=== PATIENT | female | born 1940 ===

== ENCOUNTER 2017-10-20 12:35 | Emergency (ER) | payer OTHER ==
--- NOTE | 2017-10-20 14:17 | RAD ---
PROCEDURE: Radiographs of the chest and abdomen (obstructive series) HISTORY: abd pain COMPARISON: Comparison is made with 07/22/2016 TECHNIQUE: AP radiograph of the chest, with upright and supine radiographs of the abdomen. FINDINGS: CHEST: Lungs: No evidence of focal infiltrate or consolidation in the lungs. Chronic lung changes at the lower lobes are again noted Cardiovascular: Normal size heart. No pulmonary vascular congestion. Pleura: No pleural fluid. No pneumothorax. Other findings: None. ABDOMEN AND PELVIS: Bowel: Unremarkable bowel gas pattern. No evidence of mechanical obstruction. Free air: None. Bones: Unremarkable. Other findings: Round foci of calcification are again noted at the right lower abdomen/pelvis IMPRESSION: No evidence of bowel obstruction. Mild diffuse lucency in the abdomen of uncertain etiology. If clinically warranted further assessment by CT may be obtained.
[2017-10-20 14:29] LABS: BASO # 0.1 K/uL (0.0-0.2); BASO % 0.9 % (0.0-2.0); EOS # 0.3 K/uL (0.0-0.7); EOS % 3.4 % (0.0-4.0); HEMOGLOBIN 14.4 g/dL (11.0-16.0); LYMPH # 2.6 K/uL (1.0-4.3); LYMPH % 35.8 % (20.0-40.0); MEAN CELL VOLUME 86.7 fL (81.0-99.0); MEAN CORPUSCULAR HEMOGLOBIN 29.2 pg (27.0-31.0); MEAN CORPUSCULAR HGB CONC 33.7 g/dL (33.0-37.0); MEAN PLATELET VOLUME 7.7 fL (7.2-11.7); MONO # 0.6 K/uL (0.0-0.8); MONO % 8.2 % (0.0-10.0); NEUT # 3.8 K/uL (1.8-7.0); NEUT % 51.7 % (50.0-75.0); NRBC % 0.3 % (0.0-2.0); RBC 4.93 Mil/uL (3.80-5.20); RED CELL DISTRIBUTION WIDTH 14.1 % (11.5-14.5); WHITE BLOOD COUNT 7.4 K/uL (4.8-10.8)
--- NOTE | 2017-10-20 14:39 | C.PDOC ---
History Of Present Illness 77 y/o female presents to ED with complaints of cramping abdominal pain and discomfort associated with constipation with no bowel movement for the past week. Patient has not taken any laxatives. Reports she lives alone with visiting home health attendant. Patient was seen 2017 for mental status work up ; MRI, CT scans and other labs were all negative. Time Seen by Provider: 10/20/17 13:41 Chief Complaint (Nursing): Abdominal Pain History Per: Patient History/Exam Limitations: no limitations Onset/Duration Of Symptoms: Days (7) Current Symptoms Are (Timing): Still Present Location Of Pain/Discomfort: Diffuse Quality Of Discomfort: Cramping Associated Symptoms: Constipation. denies: Fever, Chills, Nausea, Vomiting, Diarrhea Exacerbating Factors: None Alleviating Factors: None Last Bowel Movement: Days Ago (7) Recent travel outside of the [place]: No Abnormal Vaginal Bleeding: No Past Medical History Reviewed: Historical Data, Nursing Documentation, Vital Signs Vital Signs: Last Vital Signs Temp 97.3 F L 10/20/17 15:45 Pulse 60 10/20/17 15:45 Resp 20 10/20/17 15:45 BP 151/74 H 10/20/17 15:45 Pulse Ox 97 10/20/17 15:45 - Medical History PMH: Gastritis, Gastrointestinal Ulcer, HTN, Rheumatoid Arthritis, TIA - [facility] Procedures CLOSED ENDOSCOPIC BIOPSY OF LARGE INTESTINE (04/15/13) ESOPHAGOGASTRODUODENOSCOPY [EGD] W/CLOSED BIOPSY (04/08/13) Family History: States: Unknown Family Hx - Social History Hx Tobacco Use: No Hx Alcohol Use: Yes Hx Substance Use: No - Immunization History Hx Tetanus Toxoid Vaccination: No Hx Influenza Vaccination: No Hx Pneumococcal Vaccination: No Review Of Systems Constitutional: Negative for: Fever, Chills Cardiovascular: Negative for: Chest Pain Respiratory: Negative for: Cough, Shortness of Breath Gastrointestinal: Positive for: Abdominal Pain, Constipation. Negative for: Nausea, Vomiting, Diarrhea Neurological: Negative for: Weakness, Numbness Physical Exam - Physical Exam Appears: Well, Non-toxic, No Acute Distress, Other (Obese) Skin: Normal Color, Warm, Dry Head: Atraumatic, Normacephalic Eye(s): bilateral: Normal Inspection, PERRL Oral Mucosa: Moist Neck: Supple Chest: Symmetrical, No Tenderness Cardiovascular: Rhythm Regular Respiratory: Normal Breath Sounds, No Decreased Breath Sounds, No Rales, No Rhonchi, No Wheezing Gastrointestinal/Abdominal: Soft, No Tenderness, No Distention, No Guarding, No Rebound Extremity: Normal ROM, No Tenderness, No Pedal Edema Neurological/Psych: Oriented x3, Normal Speech, Normal Cognition ED Course And Treatment - Laboratory Results Result Diagrams: 10/20/17 14:19 10/20/17 14:19 Lab Interpretation: Normal (ua neg.) ECG: Interpreted By Me ECG Rhythm: Sinus Rhythm ECG Interpretation: Normal Rate From EC O2 Sat by Pulse Oximetry: 95 (RA) Pulse Ox Interpretation: Normal - Radiology CXR: Interpreted by Me CXR Interpretation: Yes: No Acute Disease - Other Rad Abdomen X-Ray X-Ray: Viewed By Me, Read By Radiologist Interpretation: IMPRESSION: normal stool/gas Reevaluation Time: 16:19 Reassessment Condition: Improved Medical Decision Making Medical Decision Making: Ordered EKG, blood work, X-ray, and urinalysis. vague symptoms, no physical nor lab findings. LOW susp of atypical ACS with normal EKG and trop neg. ok to d/c home. Safe with [employer] visiting regularly. Disposition Doctor Will See Patient In The: Office Counseled Patient/Family Regarding: Studies Performed, Diagnosis - Disposition Disposition: HOME/ ROUTINE Disposition Time: 16:19 Condition: GOOD Forms: [facility] (Wolof) - Clinical Impression Clinical Impression: Colicky periumbilical abdominal pain - Scribe Statement The provider has reviewed the documentation as recorded by the Scribrama Bah All medical record entries made by the Scribe were at my direction and personally dictated by me. I have reviewed the chart and agree that the record accurately reflects my personal performance of the history, physical exam, medical decision making, and the department course for this patient. I have also personally directed, reviewed, and agree with the discharge instructions and disposition.
[2017-10-20 14:57] LABS: ALB/GLOB RATIO 1.1 (1.0-2.1); ALBUMIN 3.7 g/dL (3.5-5.0); ALT/SGPT 27 U/L (9-52); AST/SGOT 27 U/L (14-36); BLOOD UREA NITROGEN 15 mg/dL (7-17); GFR AFRICAN-AMERICAN > 60; GFR NON-AFRICAN AMERICAN > 60; LIPASE 116 U/L (23-300)
[2017-10-20 15:24] LABS: SQUAMOUS EPITHIAL 1 /hpf (0-5); URINE BILIRUBIN NEGATIVE (NEGATIVE); URINE BLOOD NEGATIVE (NEGATIVE); URINE CLARITY Clear (Clear); URINE COLOR Red (YELLOW); URINE GLUCOSE (UA) NORMAL (Normal); URINE LEUKOCYTE ESTERASE TRACE Leu/uL (Negative); URINE NITRATE NEGATIVE (NEGATIVE); URINE PROTEIN NEGATIVE (NEGATIVE); URINE UROBILINOGEN NORMAL mg/dL (0.2-1.0)
[2017-10-20 15:45] VITALS: BP 151/74; PULSE 60; RESP 20; TEMP 97.3
[2017-10-20 16:20] VITALS: O2SAT 95
--- NOTE | 2017-10-22 22:41 | CARD ---
APPROVED REPORT EKG Measurement Heart [id number] MA [id number] [id number] <Conclusion> Sinus bradycardia Otherwise normal ECG
== END 2017-10-20 16:47 | disposition home or self-care (01) ==
LOC: C.ER 12:35
DX: R10.84 Generalized abdominal pain (principal); I10 Essential (primary) hypertension

== ENCOUNTER 2017-12-04 18:35 | Emergency (ER) | payer OTHER ==
[2017-12-04 19:05] VITALS: TEMP 97.8
[2017-12-04 20:35] LABS: BASO # 0.1 K/uL (0.0-0.2); BASO % 0.7 % (0.0-2.0); EOS # 0.2 K/uL (0.0-0.7); EOS % 2.4 % (0.0-4.0); HEMOGLOBIN 16.1 g/dL (11.0-16.0); LYMPH # 2.6 K/uL (1.0-4.3); LYMPH % 26.3 % (20.0-40.0); MEAN CELL VOLUME 87.3 fL (81.0-99.0); MEAN CORPUSCULAR HEMOGLOBIN 29.4 pg (27.0-31.0); MEAN CORPUSCULAR HGB CONC 33.7 g/dL (33.0-37.0); MEAN PLATELET VOLUME 7.8 fL (7.2-11.7); MONO # 0.6 K/uL (0.0-0.8); MONO % 5.9 % (0.0-10.0); NEUT # 6.4 K/uL (1.8-7.0); NEUT % 64.7 % (50.0-75.0); RBC 5.46 Mil/uL (3.80-5.20); RED CELL DISTRIBUTION WIDTH 14.2 % (11.5-14.5)
[2017-12-04 20:41] LABS: ALB/GLOB RATIO 0.9 (1.0-2.1); ALBUMIN 4.2 g/dL (3.5-5.0); ALT/SGPT 19 U/L (9-52); AST/SGOT 30 U/L (14-36); BLOOD UREA NITROGEN 12 mg/dL (7-17); CALCIUM 9.5 mg/dl (8.6-10.4); GFR AFRICAN-AMERICAN > 60; GFR NON-AFRICAN AMERICAN > 60; LIPASE 120 U/L (23-300)
[2017-12-04 21:12] LABS: SQUAMOUS EPITHIAL 3 /hpf (0-5); URINE BACTERIA OCC (<OCC); URINE BILIRUBIN NEGATIVE (NEGATIVE); URINE BLOOD 1+ (NEGATIVE); URINE CLARITY Hazy (Clear); URINE COLOR Yellow (YELLOW); URINE GLUCOSE (UA) NORMAL (Normal); URINE LEUKOCYTE ESTERASE TRACE Leu/uL (Negative); URINE PROTEIN NEGATIVE (NEGATIVE); URINE UROBILINOGEN NORMAL mg/dL (0.2-1.0)
--- NOTE | 2017-12-04 21:49 | C.PDOC ---
History Of Present Illness 77 y/o female with psychiatric history, who presents to the ED complaining of crampy abdominal pain for 3 days. Patient also states her last bowel movement was 3 days ago. No nausea, vomiting, or diarrhea. Patient is afebrile upon arrival. Time Seen by Provider: 12/04/17 20:10 Chief Complaint (Nursing): Abdominal Pain History Per: Patient History/Exam Limitations: no limitations Onset/Duration Of Symptoms: Days (x3) Current Symptoms Are (Timing): Still Present Radiation Of Pain To:: None Quality Of Discomfort: Cramping Associated Symptoms: Constipation Past Medical History Reviewed: Historical Data, Nursing Documentation, Vital Signs Vital Signs: Last Vital Signs Temp 97.8 F 12/04/17 19:01 Pulse 68 12/04/17 19:01 Resp 18 12/04/17 19:01 BP 144/79 12/04/17 19:01 Pulse Ox 95 12/04/17 21:49 - Medical History PMH: Arthritis, Gastritis, Gastrointestinal Ulcer, HTN, Rheumatoid Arthritis, TIA Denies: HIV, Chronic Kidney Disease Surgical History: No Surg Hx - [facility] Procedures CLOSED ENDOSCOPIC BIOPSY OF LARGE INTESTINE (04/15/13) ESOPHAGOGASTRODUODENOSCOPY [EGD] W/CLOSED BIOPSY (04/08/13) Family History: States: Unknown Family Hx - Social History Hx Tobacco Use: No Hx Alcohol Use: No Hx Substance Use: No - Immunization History Hx Tetanus Toxoid Vaccination: No Hx Influenza Vaccination: No Hx Pneumococcal Vaccination: No Review Of Systems Except As Marked, All Systems Reviewed And Found Negative. Constitutional: Negative for: Fever Gastrointestinal: Positive for: Abdominal Pain, Constipation. Negative for: Nausea, Vomiting, Diarrhea Physical Exam - Physical Exam Appears: Non-toxic, No Acute Distress Skin: Normal Color, Warm, Dry Head: Atraumatic, Normacephalic Eye(s): bilateral: Normal Inspection, PERRL, EOMI Oral Mucosa: Moist Neck: Normal ROM, Supple Chest: Symmetrical Cardiovascular: Rhythm Regular Respiratory: Normal Breath Sounds, No Accessory Muscle Use, No Wheezing Gastrointestinal/Abdominal: Bowel Sounds (normal), Soft, No Tenderness, Other ( obese abdomen) Back: Normal Inspection, No CVA Tenderness Extremity: Bilateral: Atraumatic, Normal Color And Temperature Neurological/Psych: Oriented x3, Normal Speech ED Course And Treatment - Laboratory Results Result Diagrams: 12/04/17 20:25 04/03/18 20:25 Lab Interpretation: Normal (UA neg.) ECG: Interpreted By Me ECG Rhythm: Sinus Rhythm ECG Interpretation: Normal Rate From EC O2 Sat by Pulse Oximetry: 95 Pulse Ox Interpretation: Normal - Radiology CXR: Interpreted by Me CXR Interpretation: Yes: No Acute Disease - Other Rad abd x 2 X-Ray: Interpreted by Me (normal stool/gas pattern, no FA, no obst) Reevaluation Time: 21:48 Reassessment Condition: Improved Medical Decision Making Medical Decision Making: Initial Plan: EKG and labs ordered and reviewed. X-ray obstructive series pending. Impression: normal labs and scant stool in colon. ? underlying psych as pt unaware of BM's in past 3 days. pinpoint pupils from Tramadol pt takes for unknown reason may cause constipation. educated with poor insight. Disposition Doctor Will See Patient In The: Office Counseled Patient/Family Regarding: Studies Performed, Diagnosis - Disposition Referrals: Portillo Wright MD [Staff Provider] - Disposition: HOME/ ROUTINE Disposition Time: 21:49 Condition: GOOD Additional Instructions: avoid taking Tramadol- a narcotic pain reliever- as it causes constipation as a side-effect diet with 7 fresh fruits and vegetables daily. Follow-up w Dr. Wright- call to make an appointment. Instructions: Constipation in Adults Forms: [facility] (Icelandic) - POA Present On Arrival: None - Clinical Impression Clinical Impression: Abdominal pain - Scribe Statement The provider has reviewed the documentation as recorded by the Subhashibrama Johnson Provider Attestation: All medical record entries made by the Subhashibarma were at my direction and personally dictated by me. I have reviewed the chart and agree that the record accurately reflects my personal performance of the history, physical exam, medical decision making, and the department course for this patient. I have also personally directed, reviewed, and agree with the discharge instructions and disposition.
[2017-12-04 23:00] VITALS: BP 140/80; PULSE 80; RESP 20; O2SAT 96
--- NOTE | 2017-12-05 08:34 | RAD ---
PROCEDURE: Radiographs of the chest and abdomen (obstructive series) HISTORY: abd pain COMPARISON: Obstructive series dated 10/20/2017. TECHNIQUE: AP radiograph of the chest, with upright and supine radiographs of the abdomen. FINDINGS: CHEST: Lungs: Clear. Cardiovascular: Atherosclerotic aortic calcifications. Normal size heart. No pulmonary vascular congestion. Pleura: No pleural fluid. No pneumothorax. Other findings: Osseous degenerative changes. ABDOMEN AND PELVIS: Bowel: Unremarkable bowel gas pattern. No evidence of mechanical obstruction. Free air: None. Bones: Degenerative changes. Other findings: None. IMPRESSION: Unremarkable radiographs of chest and abdomen. No evidence of mechanical bowel obstruction.
--- NOTE | 2017-12-07 10:36 | CARD ---
APPROVED REPORT EKG Measurement Heart [id number] IN [id number] <Conclusion> Normal sinus rhythm Possible Left atrial enlargement Borderline ECG
== END 2017-12-04 22:12 | disposition home or self-care (01) ==
LOC: C.ER 18:35
DX: R10.9 Unspecified abdominal pain (principal)

== ENCOUNTER 2018-04-26 12:32 | Emergency (ER) | payer MEDICARE, MEDICAID ==
[2018-04-26 12:38] VITALS: BMI 29.2
[2018-04-26 12:50] VITALS: BP 109/72; PULSE 88; RESP 16; TEMP 97.4; O2SAT 95
--- NOTE | 2018-04-26 13:13 | C.PDOC ---
History Of Present Illness 77 y/o female HTN, CVA presents to ED with c/o pain to bunion on right foot. Patient states she had surgery for bunion on left foot, and now would like it on her right foot. Notes it causes her pain when her shoes rub on the area. Denies fever, change in sensation, weakness, right foot injury or any other complaints at this time. Time Seen by Provider: 04/26/18 12:41 Chief Complaint (Nursing): Lower Extremity Problem/Injury History Per: Patient, Assistant Infant Teacher (CRYSTAL Olson) History/Exam Limitations: no limitations Onset/Duration Of Symptoms: Days Current Symptoms Are (Timing): Still Present Past Medical History Reviewed: Historical Data, Nursing Documentation, Vital Signs Vital Signs: Last Vital Signs Temp 97.4 F L 04/26/18 12:38 Pulse 88 04/26/18 12:38 Resp 16 04/26/18 12:38 BP 109/72 04/26/18 12:38 Pulse Ox 95 04/26/18 13:35 - Medical History PMH: Arthritis, Gastritis, Gastrointestinal Ulcer, HTN, Rheumatoid Arthritis, TIA Surgical History: No Surg Hx - [facility] Procedures CLOSED ENDOSCOPIC BIOPSY OF LARGE INTESTINE (04/15/13) ESOPHAGOGASTRODUODENOSCOPY [EGD] W/CLOSED BIOPSY (04/08/13) Family History: States: No Known Family Hx - Social History Hx Tobacco Use: No Hx Alcohol Use: No Hx Substance Use: No - Immunization History Hx Tetanus Toxoid Vaccination: No Hx Influenza Vaccination: No Hx Pneumococcal Vaccination: No Review Of Systems Constitutional: Negative for: Fever, Chills Musculoskeletal: Positive for: Foot Pain Skin: Negative for: Rash Neurological: Negative for: Weakness, Numbness Physical Exam - Physical Exam Appears: Non-toxic, No Acute Distress Skin: Warm, Dry, No Rash Head: Atraumatic, Normacephalic Eye(s): bilateral: Normal Inspection, EOMI Nose: Normal Oral Mucosa: Moist Neck: Normal ROM, Supple Chest: Symmetrical Respiratory: No Accessory Muscle Use Extremity: Normal ROM, No Calf Tenderness, Capillary Refill (<2 seconds), No Deformity, No Swelling, Other ((+) hallux valgus on right foot, mild tenderness , no erythema, no swelling, healed incision to left foot.) Extremity: Bilateral: Normal Color And Temperature, Normal ROM Pulses: Left Dorsalis Pedis: Normal, Right Dorsalis Pedis: Normal Neurological/Psych: Oriented x3, Normal Speech (mildly slurring noted, pt notes no change in her speech since CVA), Normal Motor, Normal Sensation ED Course And Treatment O2 Sat by Pulse Oximetry: 95 (RA) Pulse Ox Interpretation: Normal Progress Note: Pt states she wants bunion surgery and does not want to be evaluated for anything additional. Explained to pt need for outpt follow up with rebar bender. No signs of infection. No trauma. Pt verbalized understanding. Engine Installer used to ensure understanding. Case discussed with Dr Del Real, agreed upon plan and discharge. Disposition - Disposition Referrals: Coy Bueno DPM [Doctor Podiatric Medicine] - Disposition: HOME/ ROUTINE Disposition Time: 13:11 Condition: STABLE Additional Instructions: Follow up with the rebar bender in 1-2 days. Return to ER if symptoms persist or worsen. Oli un seguimiento con el podiatra en 1-2 garrison. Regrese a la daya de emergencias si los sntomas persisten o empeoran. Instructions: Bunion (DC) Forms: [employer] (Jamaican) Print Language: ARMENIAN - Clinical Impression Clinical Impression: Hallux valgus - PA / FINANCIAL INSTITUTION TREASURER / Resident Statement MD/DO has reviewed & agrees with the documentation as recorded. - Scribe Statement The provider has reviewed the documentation as recorded by the Subhashibrama Alvarez All medical record entries made by the Scribe were at my direction and personally dictated by me. I have reviewed the chart and agree that the record accurately reflects my personal performance of the history, physical exam, medical decision making, and the department course for this patient. I have also personally directed, reviewed, and agree with the discharge instructions and disposition.
== END 2018-04-26 13:51 | disposition home or self-care (01) ==
LOC: C.ER 12:32
DX: M20.11 Hallux valgus (acquired), right foot (principal); I10 Essential (primary) hypertension; M06.9 Rheumatoid arthritis, unspecified; Z86.73 Personal history of transient ischemic attack (TIA), and cerebral infarction without residual deficits

== ENCOUNTER 2018-04-29 10:22 | Emergency (ER) | payer MEDICARE, MEDICAID ==
[2018-04-29 10:22] VITALS: BMI 29.2
[2018-04-29 10:34] VITALS: BP 125/69; PULSE 75; RESP 18; TEMP 97.4; O2SAT 96
--- NOTE | 2018-04-29 11:25 | C.PDOC ---
History Of Present Illness 77 y/o female presents to ED with c/o right bunion pain for "awhile". Patient reports she had left bunion removal surgery and now has bunion on right foot, not been able to schedule surgery.Patient was seen at ED 3 days ago and instructed to follow up with autocad draftsman for surgery, states she thought autocad draftsman was in ED prompting visit today. Patient denies injury, numbness to leg, weakness to leg or any other complaints at this time Time Seen by Provider: 04/29/18 10:38 Chief Complaint (Nursing): Lower Extremity Problem/Injury History Per: Patient History/Exam Limitations: no limitations Onset/Duration Of Symptoms: Days Current Symptoms Are (Timing): Still Present Past Medical History Reviewed: Historical Data, Nursing Documentation, Vital Signs Vital Signs: Last Vital Signs Temp 97.4 F L 04/29/18 10:32 Pulse 75 04/29/18 10:32 Resp 18 04/29/18 10:32 BP 125/69 04/29/18 10:32 Pulse Ox 96 04/29/18 11:30 - Medical History PMH: Arthritis, Gastritis, Gastrointestinal Ulcer, HTN, Rheumatoid Arthritis, TIA Surgical History: No Surg Hx - [facility] Procedures CLOSED ENDOSCOPIC BIOPSY OF LARGE INTESTINE (04/15/13) ESOPHAGOGASTRODUODENOSCOPY [EGD] W/CLOSED BIOPSY (04/08/13) Family History: States: No Known Family Hx - Social History Hx Tobacco Use: No Hx Alcohol Use: No Hx Substance Use: No - Immunization History Hx Tetanus Toxoid Vaccination: No Hx Influenza Vaccination: No Hx Pneumococcal Vaccination: No Review Of Systems Cardiovascular: Negative for: Chest Pain Respiratory: Negative for: Shortness of Breath Musculoskeletal: Positive for: Foot Pain Skin: Negative for: Rash Neurological: Negative for: Weakness, Numbness Physical Exam - Physical Exam Appears: Non-toxic, No Acute Distress Skin: Warm, Dry, No Rash Head: Atraumatic, Normacephalic Eye(s): bilateral: Normal Inspection Oral Mucosa: Moist Extremity: Normal ROM, Capillary Refill (<2 seconds), Other (bunion noted to right foot ) Pulses: Right Dorsalis Pedis: Normal Neurological/Psych: Oriented x3, Normal Motor, Normal Sensation ED Course And Treatment O2 Sat by Pulse Oximetry: 96 (RA) Pulse Ox Interpretation: Normal Disposition - Disposition Referrals: Coy Bueno DPM [Doctor Podiatric Medicine] - Disposition: HOME/ ROUTINE Disposition Time: 10:40 Condition: GOOD Additional Instructions: KAVEH DAWSON, thank you for letting us take care of you today. The emergency medical care you received today was directed at your acute symptoms. If you were prescribed any medication, please fill it and take as directed. It may take several days for your symptoms to resolve. Return to the Emergency Department if your symptoms worsen, do not improve, or if you have any other problems. Please contact your doctor or call one of the physicians/clinics you have been referred to that are listed on the Patient Visit Information form that is included in your discharge packet. Bring any paperwork you were given at discharge with you along with any medications you are taking to your follow up visit. Our treatment cannot replace ongoing medical care by a primary care provider outside of the emergency department. Thank you for allowing the [facility] team to be part of your care today. Follow up with your autocad draftsman (foot doctor) this week to have your right foot evaluated. KAVEH DAWSON, breanne por dejarnos atenderlo fantasma. La atencin mdica de emergencia que recibi hoy estaba dirigida a francisca sntomas agudos. Si le prescribieron algn medicamento, llnelo y tome segn las indicaciones. Francisca s ntomas pueden tardar varios garrison en resolverse. Regrese al Departamento de Emergencia si francisca sntomas empeoran, no mejoran o si tiene algn otro problema. Comunquese con tadeo mdico o llame a milo de los mdicos / clnicas a los que delaney sido referido que figura en el formulario de Informacin de visita del paciente que se incluye en tadeo paquete de santa. Traiga todos los documentos que recibi al momento del santa junto con los medicamentos que est tomando en tadeo visita de seguimiento. Nuestro tratamiento no puede reemplazar la atencin mdica en curso por un proveedor de atencin primaria fuera del departamento de emergencia. Breanne por permitir que el equipo de [facility] sea parte de tadeo cuidado hoy. Oli un seguimiento con tadeo podiatra (mdico de pies) esta semana para evaluar tadeo pie derecho. Instructions: Nick (DC) Forms: Gen Discharge Inst Ukrainian Print Language: LITHUANIAN - Clinical Impression Clinical Impression: Bunion - Scribe Statement The provider has reviewed the documentation as recorded by the Scribe Faibo Alvarez All medical record entries made by the Scribe were at my direction and personally dictated by me. I have reviewed the chart and agree that the record accurately reflects my personal performance of the history, physical exam, medical decision making, and the department course for this patient. I have also personally directed, reviewed, and agree with the discharge instructions and disposition.
== END 2018-04-29 10:50 | disposition home or self-care (01) ==
LOC: C.ER 10:22
DX: M21.611 Bunion of right foot (principal)

== ENCOUNTER 2018-07-25 14:43 | Emergency (ER) | payer MEDICARE, MEDICAID ==
[2018-07-25 14:43] VITALS: BMI 29.2
[2018-07-25 15:00] VITALS: TEMP 97.6
[2018-07-25] MEDS ORDERED: Lidocaine 5% Patch TD STA (15:59)
--- NOTE | 2018-07-25 15:59 | C.PDOC ---
History Of Present Illness 77 Y/O FEMALE PRESENTS TO ED WITH C/O LOCALIZED RIGHT LOWER BACK PAIN FOR 2 WEEKS. PATIENT STATES PAIN IS WORSE WITH MOVEMENT, CURRENTLY ON TRAMADOL AND XANAX. PATIENT DENIES DYSURIA, HEMATURIA, FEVER, CHILLS, NAUSEA, VOMITING, ABDOMINAL PAIN, VAGINAL DISCHARGE, TRAUMA OR ANY OTHER COMPLAINTS AT THIS TIME. CO R LBP X 2 WEEKS. NO TRAUMA. LOCALIZED WORSE W MOVEMENT. ON TRAMADOL, XANAX. NO OTHER ASSOC SX EXAM NONTOXIC BACK AROM WO DIFF; ATRAUM NO DEFORM NO CVAT NO SPINAL TEND SKIN INTACT NEURO INTACT Time Seen by Provider: 07/25/18 14:45 History Per: Patient History/Exam Limitations: no limitations Onset/Duration Of Symptoms: Days Current Symptoms Are (Timing): Still Present Quality Of Discomfort: "Pain" Past Medical History Reviewed: Historical Data, Nursing Documentation, Vital Signs Vital Signs: Last Vital Signs Temp 97.6 F 07/25/18 14:56 Pulse 76 07/25/18 14:56 Resp 16 07/25/18 14:56 BP 141/60 07/25/18 14:56 Pulse Ox 95 07/25/18 14:56 - Medical History PMH: Arthritis, Gastritis, Gastrointestinal Ulcer, HTN, Rheumatoid Arthritis, TIA Surgical History: No Surg Hx - [facility] Procedures CLOSED ENDOSCOPIC BIOPSY OF LARGE INTESTINE (04/15/13) ESOPHAGOGASTRODUODENOSCOPY [EGD] W/CLOSED BIOPSY (04/08/13) Family History: States: No Known Family Hx - Social History Hx Tobacco Use: No Hx Alcohol Use: No Hx Substance Use: No - Immunization History Hx Tetanus Toxoid Vaccination: No Hx Influenza Vaccination: No Hx Pneumococcal Vaccination: No Review Of Systems Constitutional: Negative for: Fever, Chills Gastrointestinal: Negative for: Nausea, Vomiting, Abdominal Pain, Diarrhea Genitourinary: Negative for: Dysuria, Hematuria, Vaginal Discharge Musculoskeletal: Positive for: Back Pain Skin: Negative for: Rash Physical Exam - Physical Exam Appears: Non-toxic, No Acute Distress Skin: Warm, Dry, No Rash Head: Atraumatic, Normacephalic Eye(s): bilateral: Normal Inspection Oral Mucosa: Moist Neck: Normal ROM, No Midline Cervical Tenderness, Supple Cardiovascular: Rhythm Regular Respiratory: Normal Breath Sounds, No Rales, No Rhonchi, No Wheezing Gastrointestinal/Abdominal: Soft, No Tenderness, No Guarding, No Rebound Back: Normal Inspection, No CVA Tenderness, No Decreased ROM, No Paraspinal Tenderness Extremity: Normal ROM, No Pedal Edema, Capillary Refill (<2 seconds), No Defo rmity Neurological/Psych: Oriented x3, Normal Speech, Normal Motor, Normal Sensation ED Course And Treatment O2 Sat by Pulse Oximetry: 95 (RA) Pulse Ox Interpretation: Normal Disposition Counseled Patient/Family Regarding: Studies Performed, Diagnosis, Need For Followup, Rx Given - Disposition Referrals: YOUR,PMD [Other] Disposition: HOME/ ROUTINE Disposition Time: 16:17 Condition: IMPROVED Prescriptions: Sulfamethoxazole/Trimethoprim [Bactrim DS 800 mg-160 mg] 1 tab PO BID #28 tab Instructions: Low Back Pain (DC), Urinary Tract Infection, Adult (DC) Print Language: SERBIAN - Clinical Impression Clinical Impression: Low back pain, UTI (urinary tract infection) - Scribe Statement The provider has reviewed the documentation as recorded by the Subhashibrama Alvarez All medical record entries made by the Subhashibrama were at my direction and personally dictated by me. I have reviewed the chart and agree that the record accurately reflects my personal performance of the history, physical exam, medical decision making, and the department course for this patient. I have also personally directed, reviewed, and agree with the discharge instructions and disposition.
[2018-07-25 16:12] LABS: SQUAMOUS EPITHIAL 16 /hpf (0-5); URINE BACTERIA OCC (<OCC); URINE BILIRUBIN NEGATIVE (NEGATIVE); URINE BLOOD 1+ (NEGATIVE); URINE CLARITY Hazy (Clear); URINE COLOR Yellow (YELLOW); URINE GLUCOSE (UA) NORMAL (Normal); URINE LEUKOCYTE ESTERASE 2+ Leu/uL (Negative); URINE PROTEIN NEGATIVE (NEGATIVE); URINE UROBILINOGEN NORMAL mg/dL (0.2-1.0)
[2018-07-25] MEDS ORDERED: Lidocaine 5% Patch TD ONE (16:14)
[2018-07-25] MEDS ORDERED: Tmp-Smz 800 mg-160 mg DS Tab PO STA (16:16)
[2018-07-25] MEDS ORDERED: Tmp-Smz 800 mg-160 mg DS Tab ONE (16:31)
[2018-07-25 17:01] VITALS: BP 143/69; PULSE 73; RESP 18; O2SAT 98
== END 2018-07-25 17:19 | disposition home or self-care (01) ==
LOC: C.ER 14:43
DX: N39.0 Urinary tract infection, site not specified (principal); M54.5 Low back pain
CPT/HCPCS: 81001; 82948; 96372; 99285; J1885

== ENCOUNTER 2018-10-31 17:02 | Emergency (ER) | payer MEDICARE, MEDICAID ==
[2018-10-31 17:02] VITALS: BMI 29.2
[2018-10-31 17:15] VITALS: RESP 18
[2018-10-31 18:10] LABS: BASO # 0.1 K/uL (0.0-0.2); BASO % 0.7 % (0.0-2.0); EOS # 0.3 K/uL (0.0-0.7); EOS % 3.4 % (0.0-4.0); HEMOGLOBIN 14.3 g/dL (11.0-16.0); LYMPH # 2.6 K/uL (1.0-4.3); LYMPH % 33.9 % (20.0-40.0); MEAN CORPUSCULAR HEMOGLOBIN 28.5 pg (27.0-31.0); MEAN CORPUSCULAR HGB CONC 31.9 g/dL (33.0-37.0); MEAN PLATELET VOLUME 7.5 fL (7.2-11.7); MONO # 0.5 K/uL (0.0-0.8); MONO % 7.2 % (0.0-10.0); NEUT # 4.2 K/uL (1.8-7.0); NEUT % 54.8 % (50.0-75.0); NRBC % 0.1 % (0.0-2.0); RBC 5.01 Mil/uL (3.80-5.20); RED CELL DISTRIBUTION WIDTH 15.1 % (11.5-14.5); WHITE BLOOD COUNT 7.6 K/uL (4.8-10.8)
[2018-10-31 18:23] LABS: ALB/GLOB RATIO 1.1 (1.0-2.1); ALBUMIN 3.9 g/dL (3.5-5.0); ALT/SGPT 30 U/L (9-52); AST/SGOT 37 U/L (14-36); BLOOD UREA NITROGEN 14 mg/dL (7-17); CALCIUM 8.9 mg/dl (8.6-10.4); GFR NON-AFRICAN AMERICAN > 60; LIPASE 331 U/L (23-300)
[2018-10-31 18:27] LABS: MEAN CELL VOLUME 89.4 fL (81.0-99.0)
[2018-10-31 18:29] LABS: SQUAMOUS EPITHIAL 1 /hpf (0-5); URINE BACTERIA RARE (<OCC); URINE BILIRUBIN NEGATIVE (NEGATIVE); URINE BLOOD 2+ (NEGATIVE); URINE CLARITY Turbid (Clear); URINE COLOR Yellow (YELLOW); URINE GLUCOSE (UA) NORMAL (Normal); URINE LEUKOCYTE ESTERASE NEG Leu/uL (Negative); URINE PROTEIN NEGATIVE (NEGATIVE); URINE UROBILINOGEN NORMAL mg/dL (0.2-1.0)
--- NOTE | 2018-10-31 18:42 | C.PDOC ---
History Of Present Illness 78 year old female is brought to the ED from home by ambulance for evaluation. Patient states she had not had a bowel movement in two weeks. She admits to eating infrequently. She denies fever, chills. Time Seen by Provider: 10/31/18 17:53 Chief Complaint (Nursing): GI Problem History Per: Patient, EMS History/Exam Limitations: no limitations Onset/Duration Of Symptoms: Days Current Symptoms Are (Timing): Still Present Associated Symptoms: Constipation. denies: Fever, Chills Additional History Per: Patient Abnormal Vaginal Bleeding: No Past Medical History Reviewed: Historical Data, Nursing Documentation, Vital Signs Vital Signs: Last Vital Signs Temp 97.7 F 10/31/18 17:11 Pulse 84 10/31/18 17:11 Resp 18 10/31/18 17:11 BP 146/76 10/31/18 17:11 Pulse Ox 99 10/31/18 17:11 - Medical History PMH: Arthritis, Gastritis, Gastrointestinal Ulcer, HTN, Rheumatoid Arthritis, TIA Denies: HIV, Chronic Kidney Disease Surgical History: No Surg Hx - [facility] Procedures CLOSED ENDOSCOPIC BIOPSY OF LARGE INTESTINE (04/15/13) ESOPHAGOGASTRODUODENOSCOPY [EGD] W/CLOSED BIOPSY (04/08/13) Family History: States: Unknown Family Hx - Social History Hx Tobacco Use: No Hx Alcohol Use: No Hx Substance Use: No - Immunization History Hx Tetanus Toxoid Vaccination: No Hx Influenza Vaccination: No Hx Pneumococcal Vaccination: No Review Of Systems Constitutional: Negative for: Fever, Chills Gastrointestinal: Positive for: Constipation Physical Exam - Physical Exam Appears: Non-toxic, No Acute Distress, Other (elderly female ) Skin: Normal Color, Warm, Dry Head: Atraumatic, Normacephalic Eye(s): bilateral: Normal Inspection Oral Mucosa: Moist Neck: Supple Chest: Symmetrical, No Deformity, No Tenderness Cardiovascular: Rhythm Regular, No Murmur Respiratory: Normal Breath Sounds, No Rales, No Rhonchi, No Wheezing Gastrointestinal/Abdominal: Soft, No Tenderness, No Guarding, No Rebound, Other (obese) Extremity: Normal ROM, Capillary Refill (less than 2 seconds ) Neurological/Psych: Oriented x3, Normal Speech, Normal Cognition ED Course And Treatment - Laboratory Results Result Diagrams: 10/31/18 17:57 10/31/18 17:57 Lab Results: Troponin I < 0.0120 ng/mL (0.00-0.120) 10/31/18 17:57 Total Bilirubin 0.4 mg/dL (0.2-1.3) 10/31/18 17:57 AST 37 U/L (14-36) H D 10/31/18 17:57 ALT 30 U/L (9-52) 10/31/18 17:57 Alkaline Phosphatase 83 U/L (38-126) 10/31/18 17:57 Total Protein 7.4 g/dL (6.3-8.3) 10/31/18 17:57 Albumin 3.9 g/dL (3.5-5.0) 10/31/18 17:57 Globulin 3.4 gm/dL (2.2-3.9) 10/31/18 17:57 Albumin/Globulin Ratio 1.1 (1.0-2.1) 10/31/18 17:57 Lipase 331 U/L (23-300) H 10/31/18 17:57 Urine Color Yellow (YELLOW) 10/31/18 18:16 Urine Clarity Turbid (Clear) 10/31/18 18:16 Urine pH 5.0 (5.0-8.0) 10/31/18 18:16 Ur Specific [place] 1.013 (1.003-1.030) 10/31/18 18:16 Urine Protein Negative mg/dL (NEGATIVE) 10/31/18 18:16 Urine Glucose (UA) Normal mg/dL (Normal) 10/31/18 18:16 Urine Ketones Negative mg/dL (NEGATIVE) 10/31/18 18:16 Urine Blood 2+ (NEGATIVE) H 10/31/18 18:16 Urine Nitrate Negative (NEGATIVE) 10/31/18 18:16 Urine Bilirubin Negative (NEGATIVE) 10/31/18 18:16 Urine Urobilinogen Normal mg/dL (0.2-1.0) 10/31/18 18:16 Ur Leukocyte Esterase Neg Eleni/uL (Negative) 10/31/18 18:16 Urine WBC (Auto) < 1 /hpf (0-5) 10/31/18 18:16 Urine RBC (Auto) 11 /hpf (0-3) H 10/31/18 18:16 Ur Squamous Epith Cells 1 /hpf (0-5) 10/31/18 18:16 Urine Bacteria Rare (<OCC) 10/31/18 18:16 Lab Interpretation: Normal (lipase 331 H) ECG: Interpreted By Me ECG Rhythm: Sinus Rhythm ECG Interpretation: Normal Rate From EC O2 Sat by Pulse Oximetry: 99 (on RA ) Pulse Ox Interpretation: Normal - Radiology CXR: Interpreted by Me CXR Interpretation: Yes: No Acute Disease - Other Rad abd x 2 X-Ray: Interpreted by Me (+ normal stool/gas pattern, no excessive stool, no rectal impaction) Progress Note: Bloodwork, urinalysis, EKG, Obstructive Series Abdomen ordered and reviewed. Reevaluation Time: 18:41 Reassessment Condition: Unchanged Medical Decision Making Medical Decision Making: No sig constipation diet changes and exercise encouraged Disposition Doctor Will See Patient In The: Office Counseled Patient/Family Regarding: Studies Performed, Diagnosis - Disposition Referrals: Portillo Wright MD [Staff Provider] - Disposition: HOME/ ROUTINE Disposition Time: 18:42 Condition: GOOD Additional Instructions: try a laxative as needed continue diet w plenty of fresh fruits and vegetables drink more water occasional laxatives as needed. Instructions: Gas and Bloating (ED) Forms: [facility] ([place]) - Clinical Impression Clinical Impression: Abdominal discomfort - Scribe Statement The provider has reviewed the documentation as recorded by the Scribe (Leandra Irwin) Provider Attestation: All medical record entries made by the Scribe were at my direction and personally dictated by me. I have reviewed the chart and agree that the record accurately reflects my personal performance of the history, physical exam, medical decision making, and the department course for this patient. I have also personally directed, reviewed, and agree with the discharge instructions and disposition.
[2018-10-31 18:53] VITALS: BP 154/80; PULSE 80; TEMP 98.3
[2018-10-31 20:23] VITALS: O2SAT 99
--- NOTE | 2018-11-01 12:22 | RAD ---
Date of service: 10/31/2018 PROCEDURE: Radiographs of the chest and abdomen (obstructive series) HISTORY: abd pain COMPARISON: Obstructive series 12/04/2017 TECHNIQUE: AP radiograph of the chest, with upright and supine radiographs of the abdomen. FINDINGS: CHEST: Lungs: Mild bibasilar atelectasis. Elevated right hemidiaphragm. Cardiovascular: Heart size within normal limits. No aortic atherosclerotic calcification present Pleura: No pleural effusion is identified. Other findings: Degenerative changes noted of the spine. Mild hypertrophic degenerative changes noted of the bilateral acromioclavicular joints. ABDOMEN AND PELVIS: Bowel: There is scattered air in the small and large bowel. Bowel gas pattern is nonspecific. Small to moderate volume of stool noted throughout the colon. Free air: No free air seen under the diaphragm on the upright projection. Bones: Visualized osseous structures demonstrate degenerative changes. Other findings: None. IMPRESSION: Mild bibasilar atelectasis. Small to moderate volume of stool throughout the colon.
--- NOTE | 2018-11-04 22:27 | CARD ---
APPROVED REPORT Date of service: 10/31/2018 EKG Measurement Heart [id number] <Conclusion> Normal sinus rhythm Minimal voltage criteria for LVH, may be normal variant Borderline ECG
== END 2018-10-31 20:36 | disposition home or self-care (01) ==
LOC: C.ER 17:02
DX: R10.9 Unspecified abdominal pain (principal)